=== PATIENT | female | born 1945 | race Asian ===

== ENCOUNTER 2018-12-10 16:05 | Outpatient (CLI) | payer MEDICARE ==
[2018-12-10 16:54] LABS: Bilirubin,Urine NEG (Negative); Blood,Urine NEG (Negative); Color,Urine Straw (Yellow); Protein,Urine <15 mg/dL mg/dL (Negative); Urobilinogen,Urine < 2.0 mg/dL (<2.0)
== END 2018-12-10 16:06 | disposition home or self-care (01) ==
LOC: LAB 16:05
PROVIDERS: ATTEND Internal Medicine
DX: N39.0 Urinary tract infection, site not specified (principal)
CPT/HCPCS: 81001; 87086

== ENCOUNTER 2018-12-12 09:09 | Outpatient (CLI) | payer MEDICARE ==
[2018-12-12 10:12] LABS: Mean Corpuscular HGB Conc 37 % (30-34); Mean Corpuscular Volume 87 fl (79-97); Platelet Count 222 K/mm3 (140-440); Red Blood Count 4.42 M/mm3 (3.65-5.03); Red Cell Distribution Width 13.8 % (13.2-15.2)
[2018-12-12 10:14] LABS: Hematocrit 38.3 % (30.3-42.9); Hemoglobin 14.1 gm/dl (10.1-14.3)
[2018-12-12 10:35] LABS: Alanine Aminotransferase 13 units/L (7-56); Albumin 4.2 g/dL (3.9-5); BUN/Creatinine Ratio 26; Blood Urea Nitrogen 18 mg/dL (7-17); Calcium 9.4 mg/dL (8.4-10.2); Chol/HDL Ratio 3.74 %; HDL Cholesterol 55 mg/dL (40-59); Hemolysis Index 3; LDL Cholesterol,Direct 145 mg/dL (50-130)
[2018-12-15 15:12] LABS: Vitamin D, 25-OH, D2 <4 ng/mL
== END 2018-12-12 09:10 | disposition home or self-care (01) ==
LOC: LAB 09:09
PROVIDERS: ATTEND Internal Medicine
DX: Z13.1 Encounter for screening for diabetes mellitus (principal); Z13.21 Encounter for screening for nutritional disorder; Z13.220 Encounter for screening for lipoid disorders; E78.5 Hyperlipidemia, unspecified; R73.9 Hyperglycemia, unspecified
CPT/HCPCS: 36415; 80053; 80061; 82306; 82607; 83036; 84443; 85027

== ENCOUNTER 2019-03-05 07:14 | Outpatient (CLI) | payer MEDICARE ==
[2019-03-05 08:01] LABS: Blood Urea Nitrogen 14 mg/dL (7-17)
--- NOTE | 2019-03-05 11:49 | Magnetic Resonance Report ---
MRI ABDOMEN WITH AND WITHOUT CONTRAST INDICATION / CLINICAL INFORMATION: R31.0 GROSS HEMATURIA. TECHNIQUE: Multiplanar, multisequence series were obtained through the abdomen. 19 cc of MultiHance was administ ered intravenously for postcontrast imaging. COMPARISON: None FINDINGS: LIVER: No significant abnormality. GALLBLADDER: No significant abnormality. BILE DUCTS: No significant abnormality. PANCREAS: No significant abnormality. SPLEEN: No significant abnormality. ADRENALS: No significant abnormality. RIGHT KIDNEY AND URETER: The right kidney measures 9-10 cm in length. There are 2 tiny millimetric si mple cysts in the mid right kidney measuring less than 5 mm. No evidence for renal mass, hydronephros is or perinephric fluid. The visualized proximal right ureter is unremarkable. LEFT KIDNEY AND URETER: The left kidney measures 9-10 cm in length. A 1.5 cm simple cyst is identifie d at the superior pole. No evidence for renal mass, hydronephrosis or perinephric fluid. The visualiz ed proximal left ureter is unremarkable. STOMACH AND VISUALIZED BOWEL: No significant abnormality. PERITONEUM: No free fluid. No free air. No fluid collection. LYMPH NODES: No significant adenopathy. AORTA and ARTERIES: No significant abnormality. IVC and VEINS: No significant abnormality. ADDITIONAL FINDINGS: None. SKELETAL SYSTEM: No significant abnormality. IMPRESSION: Essentially normal exam of the abdomen. Bilateral simple renal cysts are identified as outlined above . No evidence for renal mass or hydronephrosis. Signer Name: Ian De La Garza Jr, MD Signed: 03/05/2019 11:44 AM Workstation Name: [id number]
== END 2019-03-05 07:15 | disposition home or self-care (01) ==
LOC: MRI 07:14
PROVIDERS: ATTEND Urology
DX: N28.1 Cyst of kidney, acquired (principal)
CPT/HCPCS: 36415; 74183; 82565; 84520; A9577

== ENCOUNTER 2020-03-23 12:21 | Outpatient (CLI) | payer MEDICARE ==
--- NOTE | 2020-03-23 13:04 | XRay Report ---
RIGHT HAND 3 VIEWS INDICATION / CLINICAL INFORMATION: PAIN IN RIGHT HAND. COMPARISON: None available. FINDINGS: Fracture of the base of the middle phalanx of the ring finger. No other significant skeletal abnormal ity Signer Name: Sohan Regan MD FACR Signed: 03/23/2020 1:00 PM Workstation Name: [id number]
== END 2020-03-23 12:22 | disposition home or self-care (01) ==
LOC: XRAY 12:21
PROVIDERS: ATTEND Internal Medicine
DX: S62.624A Displaced fracture of middle phalanx of right ring finger, initial encounter for closed fracture (principal); X58.XXXA Exposure to other specified factors, initial encounter; Y93.89 Activity, other specified; Y92.89 Other specified places as the place of occurrence of the external cause; Y99.8 Other external cause status

== ENCOUNTER 2021-04-21 18:10 | Outpatient (CLI) | payer MEDICARE | END 2021-04-21 18:11 | disposition home or self-care (01) | LOC: SPVWC 18:10 | PROVIDERS: ATTEND Internal Medicine | DX: Z12.31 Encounter for screening mammogram for malignant neoplasm of breast (principal) | CPT/HCPCS: 77067 ==

== ENCOUNTER 2022-01-03 10:37 | Outpatient (CLI) | payer MEDICARE ==
[2022-01-03 11:50] LABS: Basophils % (Auto) 0.3 % (0.0-1.8); Eosinophils # (Auto) 0.1 K/mm3 (0.0-0.4); Eosinophils % (Auto) 1.8 % (0.0-4.3); Hematocrit 37.1 % (30.3-42.9); Hemoglobin 13.3 gm/dl (10.1-14.3); Lymphocytes % (Auto) 45.7 % (13.4-35.0); Mean Corpuscular HGB Conc 36 % (30-34); Mean Corpuscular Volume 90 fl (79-97); Monocytes # (Auto) 0.4 K/mm3 (0.0-0.8); Monocytes % (Auto) 7.9 % (0.0-7.3); Platelet Count 227 K/mm3 (140-440); Red Blood Count 4.12 M/mm3 (3.65-5.03); Red Cell Distribution Width 13.4 % (13.2-15.2)
[2022-01-03 12:10] LABS: Alanine Aminotransferase 14 units/L (7-56); Albumin 4.4 g/dL (3.9-5); Blood Urea Nitrogen 14 mg/dL (7-17); Calcium 9.9 mg/dL (8.4-10.2); Chol/HDL Ratio 2.79 %; HDL Cholesterol 68 mg/dL (40-59); Hemolysis Index 10; LDL Cholesterol,Direct 116 mg/dL (50-130)
[2022-01-03 12:31] LABS: BUN/Creatinine Ratio 23
[2022-01-05 16:41] LABS: Vitamin D, 25-OH, D2 <4 ng/mL
== END 2022-01-03 10:38 | disposition home or self-care (01) ==
LOC: LABHHL 10:37
PROVIDERS: ATTEND Internal Medicine
DX: E78.5 Hyperlipidemia, unspecified (principal); R73.9 Hyperglycemia, unspecified; I10 Essential (primary) hypertension; R94.6 Abnormal results of thyroid function studies; Z00.00 Encounter for general adult medical examination without abnormal findings
CPT/HCPCS: 36415; 80053; 80061; 82306; 83036; 84443; 85025